=== PATIENT | female | born 1985 | race Caucasian/White ===

== ENCOUNTER → 2021-04-03 | Outpatient (CLI) | payer OTHER | LOC: KOH-I 13:19 | DX: G44.52 New daily persistent headache (NDPH) (principal); R55 Syncope and collapse; H53.9 Unspecified visual disturbance | CPT/HCPCS: 70551 ==

== ENCOUNTER → 2021-09-17 | Outpatient (CLI) | payer OTHER ==
[~2021-09-17] MED LIST: BENADRYL25 MG PO; BENTYL 10MG CAP10 MG PO; CARAFATE1 GM PO; HYDROCODON-ACE1 EAC4 PO; HYDROXYZINE HCL10 MG PO; LIPITOR20 MG PO; LISINOPRIL40 MG PO; NEURONTIN800 MG PO; OMEPRAZOLE40 MG PO; PROAIR HFA8.5 GM INH; SINGULAIR10 MG PO; ZOLOFT100 MG PO
[2021-09-17 12:50] LABS: HEMOGLOBIN 14.6 gm/dl (12.3-15.3); RED BLOOD COUNT 4.75 M/UL (4.00-5.10); WHITE BLOOD COUNT 11.7 K/UL (4.5-11.0)
[2021-09-17 13:09] LABS: BUN/CREATININE RATIO 11 (0-10)
== END ==
LOC: OPSV2 12:01
PROVIDERS: Orthopaedic Surgery
DX: Z01.812 Encounter for preprocedural laboratory examination (principal); M67.431 Ganglion, right wrist
CPT/HCPCS: 36415; 80048; 85025

== ENCOUNTER → 2021-09-20 | Day surgery (SDC) | payer OTHER | END | disposition home or self-care (01) | LOC: OR 05:17 | DX: G56.01 Carpal tunnel syndrome, right upper limb (principal); I10 Essential (primary) hypertension; E78.5 Hyperlipidemia, unspecified; J45.909 Unspecified asthma, uncomplicated; K21.9 Gastro-esophageal reflux disease without esophagitis; E03.9 Hypothyroidism, unspecified; F17.210 Nicotine dependence, cigarettes, uncomplicated; Z87.39 Personal history of other diseases of the musculoskeletal system and connective tissue; Z88.0 Allergy status to penicillin; Z88.5 Allergy status to narcotic agent; Z88.8 Allergy status to other drugs, medicaments and biological substances; Z79.899 Other long term (current) drug therapy | CPT/HCPCS: 84703; J0171; J1100; J1170; J1885; J2001; J2250; J2370; J2405; J2704; J2765; J3010 ==